=== PATIENT | female | born 1950 | race Caucasian/White ===

== ENCOUNTER → 2017-10-08 | Outpatient (CLI) | payer MEDICARE ==
[2017-10-08 15:46] LABS: CREATININE, SERUM 1.53 mg/dL (0.57-1.11)
== END ==
LOC: MRI 14:23
PROVIDERS: ATTEND Internal Medicine Gastroenterology
DX: R93.2 Abnormal findings on diagnostic imaging of liver and biliary tract (principal)
CPT/HCPCS: 36415; 74181; 82565; 84520

== ENCOUNTER → 2017-11-24 | Day surgery (SDC) | payer MEDICARE ==
[2017-11-23 09:56] LABS: BASOPHILS % 0.4 % (0.0-1.0); EOSINOPHILS # (AUTO) 0.2 (0.0-0.4); EOSINOPHILS % 1.9 % (0.0-6.0); HEMATOCRIT 37.5 % (34.2-44.1); HEMOGLOBIN 12.5 g/dL (12.0-16.0); LYMPHOCYTES # (AUTO) 1.8 (1.0-3.2); LYMPHOCYTES % 19.1 % (18.0-39.1); MEAN CORPUSCULAR HEMOGLOBIN 30.3 pg (28-32); MEAN CORPUSCULAR HGB CONC 33.3 g/dL (31-35); MEAN CORPUSCULAR VOLUME 90.8 fL (81-99); MONOCYTES # (AUTO) 0.5 (0.2-0.8); MONOCYTES % 5.8 % (4.4-11.3); NEUTROPHILS # (AUTO) 6.8 (2.1-6.9); NEUTROPHILS % 72.4 % (38.7-80.0); PLATELET COUNT 207 x10e3/uL (140-360); RED BLOOD COUNT 4.13 x10e6/uL (3.6-5.1); RED CELL DISTRIBUTION WIDTH 13.5 % (11.7-14.4)
[2017-11-23 10:13] LABS: ANION GAP 14.9 mmol/L (8-16); BLOOD UREA NITROGEN 7 mg/dL (7-26); BUN/CREATININE RATIO 9 (6-25); CARBON DIOXIDE 27 mmol/L (22-29); CHLORIDE 102 mmol/L (98-107); CREATININE, SERUM 0.77 mg/dL (0.57-1.11); EST GLOMERULAR FILTRATION RATE > 60 ML/MIN (60-); GLUCOSE 126 mg/dL (74-118); POTASSIUM 3.9 mmol/L (3.5-5.1); SODIUM 140 mmol/L (136-145)
--- NOTE | 2017-11-23 11:11 | Diagnostic Imaging Report ---
PROCEDURE: Frontal and lateral views of the chest. COMPARISON: None. INDICATIONS: PRE OPERATIVE CHEST X-RAY FOR WRIST SURGERY FINDINGS: Lines/tubes: None. Lungs: The lungs are well inflated and clear. There is no evidence of pneumonia or pulmonary edema. Pleura: There is no pleural effusion or pneumothorax. Heart and mediastinum: The heart and the mediastinum are normal. Bones: No acute bony abnormality. Degenerative changes of the thoracic spine. IMPRESSION: No acute radiographic abnormality. Dictated by: Mark Pina M.D. on 11/23/2017 at 11:10 Electronically approved by: Mark Pina M.D. on 11/23/2017 at 11:10
[~2017-11-24] MED LIST: ALBUTEROL0.63 MG/3 NEB; AMLODIPINE BESYL5 MG PO; ATORVASTATIN CA40 MG PO; BACITRACIN 50,000 UNIT VIAL ONE; BUPIVACAINE HCL 0.5% 10ML MPF VIAL INJ ONE; CEFAZOLIN SOD 2 GM/D5W 50ML 50 ML IV ONE; CLONAZEPAM1 MG PO; DEXAMETHASONE SOD PHOS INJ 4 MG/ML VIAL ONE; FENTANYL CITRATE/PF 100MCG/2 ML INJ ONE; FLUOXETINE PO; HYDROMORPHONE 1MG/1ML INJ ONE; IBUPROFEN600 MG PO; KETOROLAC TROMETHAMINE 30 MG/ML VIAL ONE; LEVOTHYROXINE88 MCG PO; LIDOCAINE HCL 2% LOCAL INJ 5 ML SDV VIAL INJ ONE; LISINOPRIL40 MG PO; METFORMIN HCL1000 MG PO; MIDAZOLAM HCL 2 MG/2 ML VIAL ONE; ONDANSETRON HCL INJ 2 MG/ML VIAL ONE; PANTOPRAZOLE SO40 MG PO; PROAIR HFA INH8.5 GM INH; PROPOFOL IV EMULSION 10 MG/ML 20 ML VIAL ONE; SEVOFLURANE INHAL SOLN 250 ML PEN BTL ONE; SYMBICORT 16010.2 GM INH; TYLENOL WITH C1 EACH PO
--- OUTSIDE RECORDS SUMMARY | 2017-11-24 05:33 | XMS REPORT ---
Author Author Admin, [facility] [place] [address] [place] [address] Phone Allergies, Adverse Reactions, Alerts Allergy Name Reaction Description Start Date Severity Status Provider CODEINE Itchiness Moderate Active Blade Lorenz MD Conditions or Problems Problem Name Problem Code Onset Date Status Entry Date Provider Comment Standard Description Annotate Flu vaccine V04.81 Active Meghan Menezes MD Need for prophylactic vaccination and inoculation against influenza Bereavement due to life event V62.82 Active Meghan Menezes MD Bereavement, uncomplicated Diabetes mellitus, type II 250.00 Active Meghan Menezes MD Diabetes mellitus without mention of complication, type II or unspecified type, not stated as uncontrolled Hip joint pain, left 719.45 Active Meghan Menezes MD Pain in joint involving pelvic region and thigh Knee pain, bilateral 719.46 Active Meghan Menezes MD Pain in joint involving lower leg Chronic viral hepatitis C 070.54 Active Daren Antonio MD (res) Chronic hepatitis C without mention of hepatic coma Shoulder joint pain, right 719.41 Active Daren Antonio MD (res) Pain in joint involving shoulder region COPD, acute exacerbation 491.21 Active Kavon Haney MD Obstructive chronic bronchitis with (acute) exacerbation Alcohol Abuse 305.00 Active Faustino Westbrook MD Alcohol abuse, unspecified drinking behavior Anxiety state, unspecified 300.00 Active Faustino Westbrook MD Anxiety state, unspecified Major depressive disorder, recurrent episode, moderate degree 296.32 Active Faustino Westbrook MD Major depressive disorder, recurrent episode, moderate degree Back pain, lumbar 724.2 Active Blade Lorenz MD Lumbago BMI 23.0-23.9 Active Blade Lorenz MD Body Mass Index between 19-24, adult Chronic cough 786.2 Active Blade Lorenz MD Cough COPD 496 Active Blade Lorenz MD Chronic airway obstruction, not elsewhere classified Hx of COPD 496 Active Blade Lorenz MD Chronic airway obstruction, not elsewhere classified Hx of hypercholesterolemia 272.0 Active Blade Lorenz MD Pure hypercholesterolemia Hypertension benign essential 401.1 Active Blade Lorenz MD Benign essential hypertension Hypothyroidism 244.9 Active Blade Lorenz MD Unspecified hypothyroidism Tobacco Use 305.1 Active Blade Lorenz MD Tobacco use disorder Well women exam V72.3 Active Blade Lorenz MD Special investigations and examinations - Gynecological examination Depression, major ICD-296.20 Inactive Faustino Westbrook MD Hx of alcohol abuse ICD-V11.3 Inactive Faustino Westbrook MD Hx of anxiety depression ICD-V11.8 Inactive Faustino Westbrook MD Screening for diabetes mellitus ICD-V77.1 Inactive Meghan Menezes MD Screening for lipid disorder ICD-V77.91 Inactive Meghan Menezes MD Depression, major 296.20 Resolved Faustino Westbrook MD Major depressive disorder, single episode, unspecified degree Hx of alcohol abuse V11.3 Resolved Faustino Westbrook MD Personal history of alcoholism Hx of anxiety depression V11.8 Resolved Faustino Westbrook MD Personal history of other mental disorders Screening for diabetes mellitus V77.1 Resolved Meghan Menezes MD Screening for diabetes mellitus Screening for lipid disorder V77.91 Resolved Meghan Menezes MD Screening for lipoid disorders Medication List Medication Instructions Start Date Stop Date Generic Name NDC Status Provider Patient Instruction LEVOTHYROXINE SODIUM 88 MCG ORAL TABLET One tab by mouth daily LEVOTHYROXINE SODIUM 31441599607 Active Meghan Menezes MD Active CLONAZEPAM 0.5 MG ORAL TABLET 1 By Mouth Twice a Day As Needed anxiety 05/26 CLONAZEPAM 74422929746 Active Meghan Menezes MD Active METFORMIN HCL 1000 MG ORAL TABLET 1 by mouth twice a day METFORMIN HCL 61875976266 Active Meghan Menezes MD Active CYCLOBENZAPRINE HCL 10 MG ORAL TABLET 1 By Mouth three times a day as needed for muscle spasm CYCLOBENZAPRINE HCL 85226385296 Active Soni Bocanegra KNITTING INSPECTOR Active NORVASC 5 MG ORAL TABLET 1 by mouth every day AMLODIPINE BESYLATE 42123844737 Active Meghan Menezes MD Active NASONEB NEBULIZER STARTER NASAL NEBULIZERS 72528888276 Active Daren Antonio MD (res) Active TESSALON PERLES 100 MG ORAL CAPSULE 1 by mouth 3 times a day as needed for cough BENZONATATE 73106361810 Active Daren Antonio MD (res) Active ALBUTEROL SULFATE (2.5 MG/3ML) 0.083% INHALATION NEBULIZATION SOLUTION 1 via Hand held neb every 4 - 6 hours as needed ALBUTEROL SULFATE 04194115597 Active Daren Antonio MD (res) Active ATORVASTATIN CALCIUM 20 MG ORAL TABLET Take one tab take at bedtime ATORVASTATIN CALCIUM 24380412946 Active Meghan Menezes MD Active FLUOXETINE HCL 40 MG ORAL CAPSULE 1 by mouth daily FLUOXETINE HCL 05422708052 Active Meghan Menezes MD Active LEVOTHYROXINE SODIUM 100 MCG ORAL TABLET 1 by mouth daily LEVOTHYROXINE SODIUM 19429966937 Active Meghan Menezes MD Active LISINOPRIL 40 MG ORAL TABLET 1 by mouth every day LISINOPRIL 17733174499 Active Meghan Menezes MD Active PROAIR HFA 108 (90 Base) MCG/ACT INHALATION AEROSOL SOLUTION 2 puffs every 4 - 6 hours as needed ALBUTEROL SULFATE 62819023661 Active Birgit Ward MD Active SYMBICORT 160-4.5 MCG/ACT INHALATION AEROSOL 1 inhalation bid BUDESONIDE-FORMOTEROL FUMARATE 10013692854 Active Daren Antonio MD (res) Active METFORMIN HCL 500 MG ORAL TABLET 1 by mouth twice a day METFORMIN HCL 500 MG ORAL TABLET 839575 METFORMIN HCL Inactive AZITHROMYCIN 250 MG ORAL TABLET 2 tablets by mouth on day one then one tablet by mouth each day for a total of 5 days AZITHROMYCIN 250 MG ORAL TABLET 710125 AZITHROMYCIN Inactive HYDROXYZINE HCL 25 MG ORAL TABLET 1 tab By Mouth Three Times a Day as needed for anxiety HYDROXYZINE HCL 25 MG ORAL TABLET 825638 HYDROXYZINE HCL Inactive AMLODIPINE BESYLATE 10 MG ORAL TABLET 1 tab by mouth daily 12/08 AMLODIPINE BESYLATE 10 MG ORAL TABLET 094864 AMLODIPINE BESYLATE Inactive METFORMIN HCL 500 MG ORAL TABLET 1 by mouth twice a day METFORMIN HCL 20087695617 No Longer Active Soni Bocanegra KNITTING INSPECTOR Active AZITHROMYCIN 250 MG ORAL TABLET 2 tablets by mouth on day one then one tablet by mouth each day for a total of 5 days AZITHROMYCIN 81652662036 No Longer Active Blade Lorenz MD Active HYDROXYZINE HCL 25 MG ORAL TABLET 1 tab By Mouth Three Times a Day as needed for anxiety HYDROXYZINE HCL 64176552673 No Longer Active Meghan Menezes MD Active AMLODIPINE BESYLATE 10 MG ORAL TABLET 1 tab by mouth daily 12/08 AMLODIPINE BESYLATE 92666513259 No Longer Active Blade Lorenz MD Active Immunizations Vaccine Administration Date Value Standard Description influenza immunization (Flu Vax) has been administered given influenza virus vaccine, unspecified formulation Vital Signs Date Name Value Unit Range Description blood pressure, diastolic 65 mm[Hg] BP hebert blood pressure, systolic 98 mm[Hg] BP sys height E&M 64 [in_us] Bdy height pulse rate E&M 70 /min Heart rate respiratory rate E&M 17 /min Resp rate temperature E&M 98.2 [degF] Body temperature weight E&M 132 [lb_av] Weight Measured blood pressure, diastolic 75 mm[Hg] BP hebert blood pressure, systolic 132 mm[Hg] BP sys height E&M 64 [in_us] Bdy height pulse rate E&M 82 /min Heart rate respiratory rate E&M 17 /min Resp rate temperature E&M 98.0 [degF] Body temperature weight E&M 127 [lb_av] Weight Measured blood pressure, diastolic 88 mm[Hg] BP hebert blood pressure, systolic 137 mm[Hg] BP sys height E&M 64 [in_us] Bdy height pulse rate E&M 80 /min Heart rate respiratory rate E&M 16 /min Resp rate temperature E&M 97.2 [degF] Body temperature weight E&M 127 [lb_av] Weight Measured blood pressure, diastolic 83 mm[Hg] BP hebert blood pressure, systolic 123 mm[Hg] BP sys height E&M 64 [in_us] Bdy height pulse rate E&M 63 /min Heart rate respiratory rate E&M 17 /min Resp rate temperature E&M 98.0 [degF] Body temperature weight E&M 137 [lb_av] Weight Measured blood pressure, diastolic 92 mm[Hg] BP hebert blood pressure, systolic 163 mm[Hg] BP sys height E&M 64 [in_us] Bdy height pulse rate E&M 73 /min Heart rate respiratory rate E&M 18 /min Resp rate temperature E&M 98.1 [degF] Body temperature weight E&M 137 [lb_av] Weight Measured blood pressure, diastolic 90 mm[Hg] BP hebert blood pressure, systolic 145 mm[Hg] BP sys height E&M 64 [in_us] Bdy height pulse rate E&M 76 /min Heart rate respiratory rate E&M 18 /min Resp rate temperature E&M 98.3 [degF] Body temperature weight E&M 135.50 [lb_av] Weight Measured Diagnostic Results Date Name Value Unit Range Description Lab Report: Comp. Metabolic Panel (14), Hemoglobin A1c, HCV Antibody - Serology hepatitis C antibody, serum >11.0 0.0-0.9 Lab Report: TSH+Free T4, CBC With Differential/Platelet, Comp. Metabolic ... - Hematology lymphocyte count, blood, automated 1.2 X10E3/UL 10*3/mm3 0.7- 3.1 Lab Report: TSH+Free T4, CBC With Differential/Platelet, Comp. Metabolic ... - Chemistry urea nitrogen, blood 10 mg/dL 8-27 creatinine, serum 0.79 mg/dL 0.57-1.00 chloride, serum 95 mmol/L 96-106 Lab Report: TSH+Free T4, CBC With Differential/Platelet, Comp. Metabolic ... - Hematology mean corpuscular volume, RBC 91 fL 79-97 Lab Report: Basic Metabolic Panel (8), Lipid Panel, Microalb/Creat Ratio ... - Chemistry triglyceride, serum, fasting 133 mg/dL 0-149 Lab Report: TSH+Free T4, CBC With Differential/Platelet, Comp. Metabolic ... - Hematology erythrocyte (RBC) count 4.00 X10E6/UL 10*6/mm3 3.77-5.28 Lab Report: TSH+Free T4, CBC With Differential/Platelet, Comp. Metabolic ... - Chemistry Estimated Glomerular Filtration Rate (calc) 79 mL/min/1.73m2 > 59 Lab Report: TSH+Free T4, CBC With Differential/Platelet, Comp. Metabolic ... - Hematology platelet count 251 X10E3/UL 10*3/mm3 675-630 1835/12/26 red blood cell distribution width 13.5 % 12.3-15.4 Lab Report: TSH+Free T4, CBC With Differential/Platelet, Comp. Metabolic ... - Chemistry protein, total, serum 6.6 g/dL 6.0-8.5 Lab Report: Basic Metabolic Panel (8), Lipid Panel, Microalb/Creat Ratio ... - Chemistry HDL cholesterol, serum 59 mg/dL >39 Lab Report: TSH+Free T4, CBC With Differential/Platelet, Comp. Metabolic ... - Chemistry albumin/globulin ratio, serum 2.1 1.2-2.2 Lab Report: TSH+Free T4, CBC With Differential/Platelet, Comp. Metabolic ... - Hematology eosinophils as percent of blood leukocytes 1 % Not Estab. Lab Report: TSH+Free T4, CBC With Differential/Platelet, Comp. Metabolic ... - Chemistry Absolute Neutrophils 8.3 X10E3/UL 10*3/uL 1.4-7.0 Lab Report: Basic Metabolic Panel (8), Lipid Panel, Microalb/Creat Ratio ... - Chemistry microalbumin/creatinine ratio, urine 7.6 MG/G CREAT ug/mg 0.0- 30.0 Lab Report: TSH+Free T4, CBC With Differential/Platelet, Comp. Metabolic ... - Hematology basophil count, absolute 0.0 x10E3/uL 0.0-0.2 Lab Report: TSH+Free T4, CBC With Differential/Platelet, Comp. Metabolic ... - Chemistry alanine aminotransferase (SGPT), serum 14 U/L 0-32 Lab Report: Basic Metabolic Panel (8), Lipid Panel, Microalb/Creat Ratio ... - Chemistry LDL cholesterol, serum 68 mg/dL 0-99 Lab Report: TSH+Free T4, CBC With Differential/Platelet, Comp. Metabolic ... - Hematology monocytes as percent of blood leukocytes 6 % Not Estab. Lab Report: Basic Metabolic Panel (8), Lipid Panel, Microalb/Creat Ratio ... - Chemistry cholesterol, serum 154 mg/dL 100-199 Lab Report: TSH+Free T4, CBC With Differential/Platelet, Comp. Metabolic ... - Hematology mean corpuscular hemoglobin concentration, RBC 33.8 G/DL % 31.5- 35.7 hemoglobin, blood 12.3 g/dL 11.1-15.9 leukocyte count, blood 10.3 X10E3/UL 10*3/mm3 3.4-10.8 hematocrit, blood 36.4 % 34.0-46.6 Lab Report: TSH+Free T4, CBC With Differential/Platelet, Comp. Metabolic ... - Chemistry globulin, serum 2.1 1.5-4.5 thyroid stimulating hormone, serum 0.276 u[iU]/mL 0.450-4.500 albumin, serum 4.5 g/dL 3.6-4.8 Lab Report: Basic Metabolic Panel (8), Lipid Panel, Microalb/Creat Ratio ... - Chemistry very low density lipoproteins 27 mg/dL 5-40 Lab Report: TSH+Free T4, CBC With Differential/Platelet, Comp. Metabolic ... - Chemistry calcium, serum 9.3 mg/dL 8.7-10.3 Lab Report: TSH+Free T4, CBC With Differential/Platelet, Comp. Metabolic ... - Hematology basophils as percent of blood leukocytes 0 % Not Estab. Lab Report: TSH+Free T4, CBC With Differential/Platelet, Comp. Metabolic ... - Chemistry thyroxine, serum, free 1.65 ng/dL 0.82-1.77 Lab Report: Basic Metabolic Panel (8), Lipid Panel, Microalb/Creat Ratio ... - Urinalysis microalbumin/total urine volume 14.4 mg/L Not Estab. Lab Report: TSH+Free T4, CBC With Differential/Platelet, Comp. Metabolic ... - Hematology monocyte count, blood, automated 0.7 X10E3/UL 10*3/uL 0.1-0.9 Lab Report: TSH+Free T4, CBC With Differential/Platelet, Comp. Metabolic ... - Chemistry immature granulocytes, percentage of total cells, blood 0 % Not Estab. urea nitrogen/creatinine ratio, serum 13 - Lab Report: TSH+Free T4, CBC With Differential/Platelet, Comp. Metabolic ... - Genetics/fertility eGFR if 91 mL/min/1.73m2 >59 Lab Report: TSH+Free T4, CBC With Differential/Platelet, Comp. Metabolic ... - Hematology lymphocytes as percent of blood leukocytes 12 % Not Estab. Lab Report: TSH+Free T4, CBC With Differential/Platelet, Comp. Metabolic ... - Chemistry carbon dioxide, venous blood 23 mmol/L 18-29 sodium, serum 136 mmol/L 095-583 8024/12/26 hemoglobin A1C, blood, as % of total hemoglobin 6.1 % 4.8-5.6 alkaline phosphatase, serum 71 U/L 39-117 Lab Report: TSH+Free T4, CBC With Differential/Platelet, Comp. Metabolic ... - Hematology Eosinophil Absolute Count 0.1 X10E3/UL 10*3/uL 0.0-0.4 mean corpuscular hemoglobin, RBC 30.8 pg 26.6-33.0 Lab Report: TSH+Free T4, CBC With Differential/Platelet, Comp. Metabolic ... - Chemistry bilirubin, serum, total 0.4 mg/dL 0.0-1.2 Lab Report: Basic Metabolic Panel (8), Lipid Panel, Microalb/Creat Ratio ... - Chemistry creatinine, random, urine 188.3 mg/dL Not Estab. Lab Report: TSH+Free T4, CBC With Differential/Platelet, Comp. Metabolic ... - Hematology neutrophils as percent of blood leukocytes 81 % Not Estab. Lab Report: TSH+Free T4, CBC With Differential/Platelet, Comp. Metabolic ... - Chemistry blood glucose, random 167 mg/dL 65-99 potassium, serum 4.3 mmol/L 3.5-5.2 aspartate aminotransferase (SGOT), serum 15 U/L 0-40 Encounters Date Encounter Provider Code Facility 13:27:53 HIDE TANNER Est Patient Detailed - 72418 Meghan Menezes MD CPT- 61011 [facility] 21:34:47 CDT Est Patient Exp Problem - 36346 Meghan Menezes MD CPT- 66230 [facility] 08:45:03 CDT Est Patient Detailed - 53552 Meghan Menezes MD CPT- 91742 [facility] 15:26:28 CDT Est Patient Detailed - 21046 Daren Antonio MD (res) CPT-16774 [facility] 11:18:46 HIDE TANNER Est Patient Exp Problem - 65762 Blade Lorenz MD CPT-17068 [facility] 16:03:38 HIDE TANNER Est Patient Exp Problem - 23695 Blade Lorenz MD CPT-37831 [facility] 11:41:53 HIDE TANNER Est Patient Exp Problem - 10843 Kavon Haney MD CPT-20230 [facility] 16:35:56 HIDE TANNER Est Patient Exp Problem - 30525 Faustino Westbrook MD CPT -03008 [facility] 11:17:24 HIDE TANNER New Patient Detailed - 22610 Birgit Ward MD CPT-08481 [facility] Procedures Code Procedure Name Date Entry Date Standard Description CPT-61998 INFLUENZA VACCINE QUADRIVALENT 3 YRS PLUS IM 21:34:52 CDT CPT-46536 Diagnostic evaluation (no medical) - 93343 15:43:40 HIDE TANNER
--- OUTSIDE RECORDS SUMMARY | 2017-11-24 05:33 | XMS REPORT ---
Author Author [facility] Address Unknown Phone Unavailable Care Team Providers Care Assistant Golf Coach Name Role Phone NAT HICKS Unavailable Unavailable JAMEEL FERRO Unavailable Unavailable Problems This patient has no known problems. Allergies, Adverse Reactions, Alerts This patient has no known allergies or adverse reactions. Medications This patient has no known medications. Results Test Description Test Time Test Comments Text Results Atomic Results Result Comments CHEST 2 VIEWS [place] [address] Patient Name: FARIBA ASHER MR #: [id number] : 1950 Age/Sex: 67/F Req #: [id number] [facility] Physician: Ordered by: NAT HICKS MD Report #: [id number] Location: OR Room/Bed: Procedure: [id number] DX/CHEST 2 VIEWS Exam Date: 11/23/17 Exam Time: 1010 REPORT STATUS: Signed PROCEDURE: Frontal and lateral views of the chest. COMPARISON: None. INDICATIONS: PRE OPERATIVE CHEST X- RAY FOR WRIST SURGERY FINDINGS: Lines/tubes: None. Lungs: The lungs are well inflated and clear. There is no evidence of pneumonia or pulmonary edema. Pleura: There is no pleural effusion or pneumothorax. Heart and mediastinum: The heart and the mediastinum are normal. Bones: No acute bony abnormality. Degenerative changes of the thoracic spine. IMPRESSION: No acute radiographic abnormality. Dictated by: Yakov Matt M.D. on 11/23/2017 at 11:10 Electronically approved by: Yakov Matt M.D. on 11/23/2017 at 11:10 Dictated By : YAKOV MATT MD 09 Transcribed By: FEDERICO on 11/23/17 111 COPY TO: NAT HICKS MD LIVER [place] [address] Patient Name: FARIBA ASHER MR #: [id number] : 1950 Age/Sex: 67/F Req #: [id number] Adm Physician: Ordered by: JAMEEL FERRO MD Report #: [id number] Location: Room/Bed: Procedure: [id number] US/US LIVER Exam Date: Exam Time: REPORT STATUS: Signed PROCEDURE: US LIVER COMPARISON: None. INDICATIONS: Chronic Hepatitis C TECHNIQUE: Aviles scale and color Doppler ultrasound liver FINDINGS: Normal caliber abdominal aorta with atherosclerosis. Normal pancreatic head and proximal body. The tail is obscured by bowel gas. Right liver span 13 cm. Normal underlying parenchymal echogenicity with mild edge nodularity. 0.5 x 0.4 x 0.5 cm hyperechoic nodule in the peripheral left lobe. Portal vein diameter 1.3 cm; normal flow direction. Large gallstones. Wall thickness 4 mm. Common bile duct diameter 3 mm. Right kidney span 10 cm. Normal kidney. CONCLUSION: 1. 5 mm indeterminate nodule within the left lobe of the liver. MRI is recommended for characterization. 2. Findings consistent with cirrhosis. Dictated by: Desiree Lo M.D. on 08/24/2017 at 9:55 Electronically approved by: Desiree Lo M.D. on 08/24/2017 at 9:55 Dictated By: DESIREE LO MD 4 Transcribed By: FEDERICO on 08/24/17954 COPY TO: JAMEEL FERRO MD
--- OUTSIDE RECORDS SUMMARY | 2017-11-24 05:33 | XMS REPORT | Clinical Summary ---
Author Author [facility] Organization [facility] Address Unknown Phone Unavailable Care Team Providers Care Glass Breaker Name Role Phone Sergey Rosario MD PCP Allergies Active Allergy Reactions Severity Noted Date Comments Codeine Itching 08/03/2016 Current Medications Prescription Sig. Disp. Refills Start End Date Status Date lisinopril Take 1 tablet (40 mg 30 tablet 1 08/03/20 Active (PRINIVIL,ZESTRIL) 40 MG total) by mouth daily. 16 tablet FLUoxetine (PROzac) 40 MG Take 1 capsule (40 mg 30 capsule 1 08/03/20 Active capsule total) by mouth daily. 16 atorvastatin (LIPITOR) 20 Take 1 tablet (20 mg 30 tablet 1 08/03/20 Active MG tablet total) by mouth daily. 16 amLODIPine (NORVASC) 5 mg TAKE ONE TABLET BY MOUTH 30 tablet 0 Active tablet ONCE DAILY 17 levothyroxine (SYNTHROID, Take 1 tablet (100 mcg 30 tablet 1 01/27/20 Active LEVOXYL) 100 mcg tablet total) by mouth every 17 morning. metFORMIN (GLUCOPHAGE) TAKE ONE TABLET BY MOUTH 60 tablet 0 02/02/20 Active 500 mg tablet TWICE DAILY WITH MEALS 17 ibuprofen (ADVIL,MOTRIN) Take 1 tablet (600 mg 30 tablet 0 11/12/19 12/13/19 Active 600 MG tablet total) by mouth every 6 18 18 (six) hours as needed for mild pain for up to 30 days. metFORMIN (GLUCOPHAGE) Take 1 tablet (500 mg 60 tablet 1 08/03/20 Discontin 500 MG tablet total) by mouth 2 (two) 16 17 ued times a day with meals. levothyroxine (SYNTHROID, Take 1 tablet (100 mcg 30 tablet 1 08/03/20 01/27/20 Discontin LEVOTHROID) 100 MCG total) by mouth every 16 17 ued tablet morning. acetaminophen-codeine Take 1-2 tablets by mouth 15 tablet 0 11/12/19 11/17/19 (TYLENOL WITH CODEINE #3) every 6 (six) hours as 18 18 300-30 mg per tablet needed for moderate pain for up to 5 days. Active Problems Not on file Encounters Date Type Specialty Care Team Description 11/12/2017 Emergency Emergency Medicine Chhaya Terry, Left wrist fracture, closed, initial encounter (Primary Dx); Fall, initial encounter 04/02/2017 Refill Family Medicine Sergey Rosario MD 03/03/2017 Refill Family Medicine Sergey Rosario MD 02/01/2017 Refill Family Medicine Sergey Rosario MD 01/24/2017 Refill Family Sergey Cerna MD 01/21/2017 Refill Family Medicine Sergey Rosario MD 01/16/2017 Refill Family Medicine Sergey Rosario MD 12/12/2016 [facility] Emergency Medicine Physician, Samreen, Encounter Inocente Bynum MD 12/12/2016 Orders Only Emergency Medicine Provider, MD Rizw[place] after 11/23/2016 Family History Medical History Relation Name Comments Diabetes Father Heart disease Father Hepatitis Father Asthma Mother Heart disease Mother Relation Name Status Comments Father Mother Alive Social History Tobacco Use Types Packs/Day Years Used Date Current Every Day Smoker 0.25 Smokeless Tobacco: Current User Alcohol Use Drinks/Week oz/Week Comments No Sex Assigned at Date Recorded Not on file Last Filed Vital Signs Vital Sign Reading Time Taken Blood Pressure 130/85 11/12/2017 7:36 PM AWS ARCHITECT Pulse 98 11/12/2017 7:36 PM AWS ARCHITECT Temperature 36.9 C (98.4 F) 11/12/2017 4:46 PM AWS ARCHITECT Respiratory Rate 20 11/12/2017 7:36 PM AWS ARCHITECT Oxygen Saturation 98% 11/12/2017 7:36 PM AWS ARCHITECT Inhaled Oxygen - - Concentration Weight - - Height - - Body Mass Index - - Plan of Treatment Health Maintenance Due Date Last Done Comments PAP SMEAR 1973 COLONOSCOPY 2002 ZOSTER VACCINE 2012 MAMMOGRAM 04/13/2013 04/13/2011 INFLUENZA VACCINE 05/04/2017 PNEUMOCOCCAL 2017 POLYSACCHARIDE VACCINE AGE 65 AND OVER PNEUMOCOCCAL-13 2017 Procedures Procedure Name Priority Date/Time Associated Diagnosis Comments WA CLOSED RX DIST Routine 11/12/2017 Results for this RAD/ULNA FX,MANIPUL 10:05 PM AWS ARCHITECT procedure are in the results section. WA APPLY LONG ARM SPLINT Routine 11/12/2017 Results for this 10:05 PM AWS ARCHITECT procedure are in the results section. after 11/23/2016 Results * ORTHOPEDIC INJURY TREATMENT (11/12/2017 10:05 PM) Narrative Chhaya Terry MD 11/12/2017 10:05 PM Orthopedic Injury Treatment Performed by: AMANDA FABIAN III Authorized by: CHHAYA TERRY Consent: Consent obtained:Verbal Consent given by:Patient Risks discussed:Nerve damage, pain and vascular damage Alternatives discussed:Alternative treatment Injury: Injury location:Forearm Forearm injury location:L forearm Forearm fracture type: distal radial Pre-procedure assessment: Neurological function: normal Distal perfusion: normal Range of motion: reduced Sedation: Sedation type:Anxiolysis Anesthesia (see MAR for exact dosages): Anesthesia method:Local infiltration Local anesthetic:Lidocaine 1% w/o epi Procedure details: Manipulation performed: yes Skin traction used: yes Skeletal traction used: yes Reduction successful: yes X-ray confirmed reduction: yes Immobilization:Splint Splint type:Sugar tong Supplies used:Elastic bandage, Ortho-Glass and cotton padding Post-procedure assessment: Neurological function: normal Distal perfusion: normal Range of motion: improved Patient tolerance of procedure:Tolerated well, no immediate complications * XR Wrist 3+ Vw Left (11/12/2017 6:51 PM) Only the most recent of 2 results within the time period is included. Specimen Performing Laboratory [facility] [address] [place] [address] Narrative Procedure:XR WRIST 3VW LEFT REFERRING PHYSICIAN: CHHAYA TERRY HISTORY:DISLOCATIONWRIST, post reduction of wrist IMPRESSION: Since the study earlier on the same day, there has been placement of an overlying cast causing obscuration of the underlying osseous details. Mild to moderate reduction of the Colles' fractures is seen. [facility]-[id number] Procedure Note Interface, Radiology Results Incoming - 11/12/2017 6:57 PM AWS ARCHITECT Procedure:XR WRIST 3 VW LEFT REFERRING PHYSICIAN: CHHAYA TERRY HISTORY: DISLOCATION WRIST, post reduction of wrist IMPRESSION: Since the study earlier on the same day, there has been placement of an overlying cast causing obscuration of the underlying osseous details. Mild to moderate reduction of the Colles' fractures is seen. [facility]-[id number] * XR Forearm 2 Vw Left (11/12/2017 5:39 PM) Specimen Performing Laboratory [facility] [address] [place] [address] Narrative XR FOREARM 2 VW LEFT CLINICAL INDICATION:BONE PAINFOREARM COMPARISON:Wrist exam same day IMPRESSION: An acute comminuted transverse fracture involves the distal radius with moderate apex palmar angulation and impaction. There is widening of the distal radioulnar articulation with an ulnar styloid fracture. No definite intra- articular offset is visualized. Prominent soft tissue swelling is noted. A radial prosthesis is noted but proximal radius and ulna are otherwise unremarkable. Thank you for allowing us to participate in the care of your patient. [facility]-[id number] Procedure Note Interface, Radiology Results Incoming - 11/12/2017 5:47 PM AWS ARCHITECT XR FOREARM 2 VW LEFT CLINICAL INDICATION: BONE PAIN FOREARM COMPARISON: Wrist exam same day IMPRESSION: An acute comminuted transverse fracture involves the distal radius with moderate apex palmar angulation and impaction. There is widening of the distal radioulnar articulation with an ulnar styloid fracture. No definite intra- articular offset is visualized. Prominent soft tissue swelling is noted. A radial prosthesis is noted but proximal radius and ulna are otherwise unremarkable. Thank you for allowing us to participate in the care of your patient. [facility]-[id number] * XR Chest 2 Vw (12/12/2016 4:13 PM) Specimen Performing Laboratory [facility] [address] [place] [address] Narrative EXAMINATION:CHEST 2 VIEW PA AP LATERAL CLINICAL HISTORY:1. Chest Pain COMPARISON:10/30/2016 IMPRESSION: The lungs are clear. The cardiomediastinal silhouette is within normal limits. The bones are age-appropriate. Normal chest. [id number] Procedure Note Interface, Radiology Conversion - 12/12/2016 4:20 PM AWS ARCHITECT EXAMINATION: CHEST 2 VIEW PA AP LATERAL CLINICAL HISTORY: 1. Chest Pain COMPARISON: 10/30/2016 IMPRESSION: The lungs are clear. The cardiomediastinal silhouette is within normal limits. The bones are age-appropriate. Normal chest. [id number] * ECG 12 lead (12/12/2016 3:27 PM) Component Value Ref Range Ventricular rate 68 Atrial rate 68 WA interval 116 QRSD interval 84 QT interval 396 QTC interval 421 P axis 1 -26 QRS axis 1 53 T wave axis 66 EKG impression Normal sinus rhythm-Normal ECG-In automated comparison with ECG of 30-OCT-2016 19:44,-No significant change was found- Specimen Performing Laboratory [facility] [address] [place] [address] * Estimated GFR (12/12/2016 3:26 PM) Component Value Ref Range GFR Non Af Amer 56 (A) mL/min/1.73 m2 GFR Af Amer 68 mL/min/1.73 m2 Comment: Chronic kidney disease: <60 mL/min/1.73m2 Kidney failure: <15 mL/min/1.73m2 The estimated GFR is calculated from the IDMS-traceable Modification of Diet in Renal Disease Equation. The accuracy of the calculation is poor when the creatinine is normal. Calculated values >90 mL/min/1.73m2 are not reported. This equation has not been validated in children (<18 years), women, the elderly (>70 years), or ethnic groups other than Caucasians and Americans. Specimen Performing Laboratory [facility] DEPARTMENT OF PATHOLOGY AND GENOMIC MEDICINE [address] [place] [address] * Troponin (12/12/2016 3:26 PM) Component Value Ref Range Troponin <0.01 0.00 - 0.60 ng/mL Comment: 0.11 - 1.49 ng/ml May indicate increased risk of acute coronary syndrome. >=1.5 ng/ml Consistent with acute myocardial infarction. The diagnostic value of a single normal or non-diagnostic result is questionable. Serial samples at 2-6 hour intervals are required to rule out acute myocardial injury. Specimen Performing Laboratory [facility] DEPARTMENT OF PATHOLOGY AND GENOMIC MEDICINE [address] [place] [address] * CBC with platelet and differential (12/12/2016 3:26 PM) Component Value Ref Range WBC 10.0 4.2 - 11.0 k/uL RBC 4.71 4.04 - 5.86 m/uL HGB 14.2 11.5 - 15.3 g/dL HCT 42.3 34.0 - 45.0 % MCV 89.8 80.0 - 98.0 fL MCH 30.1 27.0 - 34.0 pg MCHC 33.6 31.5 - 36.5 g/dL RDW - SD 42.3 37.0 - 51.0 fL MPV 10.8 (H) 7.4 - 10.4 fL Platelet count 237 150 - 400 k/uL Nucleated RBC 0.00 /100 WBC Neutrophils 71.1 (H) 36.0 - 66.0 % Lymphocytes 19.4 (L) 24.0 - 44.0 % Monocytes 7.1 (H) 0.0 - 6.0 % Eosinophils 1.5 0.0 - 6.0 % Basophils 0.6 0.0 - 1.2 % Immature granulocytes 0.3 0.0 - 1.0 % Specimen Performing Laboratory [facility] DEPARTMENT OF PATHOLOGY AND GENOMIC MEDICINE [facility] [place] [address] * B natriuretic peptide (12/12/2016 3:26 PM) Component Value Ref Range BNP 34 0 - 100 pg/mL Specimen Performing Laboratory [facility] DEPARTMENT OF PATHOLOGY AND GENOMIC MEDICINE [facility] [place] [address] * Hepatic function panel (12/12/2016 3:26 PM) Component Value Ref Range Albumin 4.3 3.2 - 5.0 g/dL Total bilirubin 0.9 0.2 - 1.2 mg/dL Bilirubin direct 0.2 0.0 - 0.4 mg/dL Alkaline phosphatase 96 30 - 120 U/L Protein 7.7 6.3 - 8.2 g/dL ALT 21 (L) 30 - 65 U/L AST 11 (L) 15 - 37 U/L Specimen Performing Laboratory [facility] DEPARTMENT OF PATHOLOGY AND GENOMIC MEDICINE [facility] [place] [address] * Basic metabolic panel (12/12/2016 3:26 PM) Component Value Ref Range Sodium 137 135 - 150 mEq/L Potassium 3.9 3.5 - 5.0 mEq/L Chloride 101 100 - 109 mEq/L CO2 26 24 - 32 mmol/L Anion gap 10 7 - 15 mEq/L Comment: Starting from January , anion gap calculation no longer incorporates potassium. Please note the change. BUN 12 7 - 18 mg/dL Creatinine 1.0 0.8 - 1.5 mg/dL Glucose 131 (H) 65 - 100 mg/dL Calcium 9.2 8.6 - 10.7 mg/dL Specimen Performing Laboratory [facility] DEPARTMENT OF PATHOLOGY AND GENOMIC MEDICINE [address] [place] [address] * POC glucose (12/12/2016 3:17 PM) Component Value Ref Range POC glucose 149 (H) 65 - 100 mg/dL Comment: Meter ID: [id number] Weld Engineer: Martita George Specimen Performing Laboratory [facility] DEPARTMENT OF PATHOLOGY AND GENOMIC MEDICINE [address] [place] [address] after 11/23/2016 Insurance Payer Benefit Subscriber ID Type Phone Address Plan / Group AETNA MEDICARE AETNA xxxxxxxx HMO MEDICARE HMO/PPO [facility] Home:
--- NOTE | 2017-11-24 20:38 | Operative Report ---
DATE OF PROCEDURE: November 24, 2017 PREOPERATIVE DIAGNOSIS: Displaced left distal radius fracture. POSTOPERATIVE DIAGNOSIS: Displaced left distal radius fracture. OPERATIONS/PROCEDURES PERFORMED: Patient underwent 1. An attempted closed reduction of the left distal radius fracture followed by an open reduction and percutaneous. 2. Pinning of the left distal radius fracture. 3. Allograft bone grafting of the left distal radius fracture. LOOP CUTTER: Candice Rowland ANESTHESIA: General intubation anesthesia. IV FLUIDS: Per the anesthesia record. BRIEF DESCRIPTION OF PROCEDURE: Ms. Tobar was taken to the operating room, placed in the supine position on operating table. Following induction of general anesthesia, as well as endotracheal intubation, the patient's left upper extremity was examined under anesthesia. She was found to have a moderate deformity at the level of the joint. There was bruising and ecchymosis involving the wrist area. Fluoroscopic evaluation of the wrist joint demonstrated a dorsally malaligned and displaced distal radius fracture. The patient's upper extremity was prepped and draped in standard surgical fashion. The case was begun by attempting a closed reduction of the distal radius. Gentle distraction and volarly directed force was placed across the patient's wrist and fluoroscopic evaluation demonstrated improvement in the alignment and unsuccessful complete reduction of the patient's distal radius fracture. An incision was then created overlying the fracture site in the center point of the distal forearm and wrist. This incision was carried through skin only. Blunt dissection was used to deepen the incision to the level of the 4th dorsal extensor compartment. This compartment was opened and the common extensor tendons were retracted in an ulnar direction. The fracture site was easily identified and a [place] was placed within the fracture site. The fracture was then levered into a reduced position and two 0.062 K-wires were used to transfix the fracture site in its reduced position. This was achieved by the surgeon initiating pin fixation by starting the pins and the distal aspect the radius and the nurse first assist to advancing the pins across the patient's fracture site with the fracture held in its reduced position. Once this was achieved, the fracture was visualized in both AP and lateral planes and found to have marked improvement in its alignment. The wound was copiously irrigated. Allograft bone graft was packed into the dorsal bone defect left by the fracture site. The extensor compartment was closed loosely. The remaining soft tissues were closed in multilayered fashion. Sterile dressings were applied, as well as a well-padded sugar-tong splint. The patient was then awakened and taken to post anesthesia care unit in stable condition. Candice Rowland acted as nurse first assist for this case and was necessary for both prepping and draping the patient, as well as reduction of the fracture site and the passage of pins to capture the fracture site and the application of splint following the surgery that allowed this case to be successful. Job#: [id number] CQ
== END | disposition home or self-care (01) ==
LOC: OR 05:30
PROVIDERS: ATTEND Specialist
DX: S52.532A Colles' fracture of left radius, initial encounter for closed fracture (principal); M19.90 Unspecified osteoarthritis, unspecified site; J44.9 Chronic obstructive pulmonary disease, unspecified; K21.9 Gastro-esophageal reflux disease without esophagitis; K57.92 Diverticulitis of intestine, part unspecified, without perforation or abscess without bleeding; I10 Essential (primary) hypertension; E11.9 Type 2 diabetes mellitus without complications; F17.210 Nicotine dependence, cigarettes, uncomplicated; W19.XXXA Unspecified fall, initial encounter; Z01.810 Encounter for preprocedural cardiovascular examination; Z01.812 Encounter for preprocedural laboratory examination; Z01.818 Encounter for other preprocedural examination
CPT/HCPCS: 25607; 36415 ×2; 71046; 76000; 80048; 82948; 85025; 93005; C1713 ×2; J1100; J1170; J1885; J2001; J2250; J2405

== ENCOUNTER → 2018-01-05 | Day surgery (SDC) | payer MEDICARE ==
[2018-01-04 08:28] LABS: BASOPHILS % 0.4 % (0.0-1.0); EOSINOPHILS # (AUTO) 0.1 (0.0-0.4); EOSINOPHILS % 1.5 % (0.0-6.0); HEMATOCRIT 39.5 % (34.2-44.1); HEMOGLOBIN 13.2 g/dL (12.0-16.0); LYMPHOCYTES # (AUTO) 1.3 (1.0-3.2); LYMPHOCYTES % 14.4 % (18.0-39.1); MEAN CORPUSCULAR HEMOGLOBIN 30.1 pg (28-32); MEAN CORPUSCULAR HGB CONC 33.4 g/dL (31-35); MEAN CORPUSCULAR VOLUME 90.2 fL (81-99); MONOCYTES # (AUTO) 0.5 (0.2-0.8); MONOCYTES % 5.4 % (4.4-11.3); NEUTROPHILS # (AUTO) 7.1 (2.1-6.9); NEUTROPHILS % 78.1 % (38.7-80.0); PLATELET COUNT 236 x10e3/uL (140-360); RED BLOOD COUNT 4.38 x10e6/uL (3.6-5.1); RED CELL DISTRIBUTION WIDTH 13.4 % (11.7-14.4)
[2018-01-04 08:47] LABS: BLOOD UREA NITROGEN 6 mg/dL (7-26); BUN/CREATININE RATIO 7 (6-25); CALCIUM 9.5 mg/dL (8.4-10.2); CARBON DIOXIDE 26 mmol/L (22-29); CHLORIDE 101 mmol/L (98-107); CREATININE, SERUM 0.91 mg/dL (0.57-1.11); EST GLOMERULAR FILTRATION RATE > 60 ML/MIN (60-); GLUCOSE 136 mg/dL (74-118); SODIUM 140 mmol/L (136-145)
[~2018-01-05] MED LIST changes: -BUPIVACAINE HCL 0.5% 10ML MPF VIAL INJ ONE; +BUPIVACAINE HCL 0.5% INJ 30 ML VIAL INJ ONE; -KETOROLAC TROMETHAMINE 30 MG/ML VIAL ONE
--- OUTSIDE RECORDS SUMMARY | 2018-01-05 09:40 | XMS REPORT ---
Author Author Admin, [facility] Address [address] [place] [address] Phone Allergies, Adverse Reactions, Alerts Allergy Name [...] One tab by mouth daily LEVOTHYROXINE SODIUM 85176531724 Active Meghan Menezes MD Active CLONAZEPAM 0.5 MG ORAL TABLET 1 By Mouth Twice a Day As Needed anxiety 05/26 CLONAZEPAM 40003067043 Active Meghan Menezes MD Active METFORMIN HCL 1000 MG ORAL TABLET 1 by mouth twice a day METFORMIN HCL 18745717780 Active Meghan Menezes MD Active CYCLOBENZAPRINE HCL 10 MG ORAL TABLET 1 By Mouth three times a day as needed for muscle spasm CYCLOBENZAPRINE HCL 50237800851 Active Soni Bocanegra WAXER TENDER Active NORVASC 5 MG ORAL TABLET 1 by mouth every day AMLODIPINE BESYLATE 04151273881 Active Meghan Menezes MD Active NASONEB NEBULIZER STARTER NASAL NEBULIZERS 29446387356 Active Daren Antonio MD (res) Active TESSALON PERLES 100 MG ORAL CAPSULE 1 by mouth 3 times a day as needed for cough BENZONATATE 20637884579 Active Daren Antonio MD (res) Active ALBUTEROL SULFATE (2.5 MG/3ML) 0.083% INHALATION NEBULIZATION SOLUTION 1 via Hand held neb every 4 - 6 hours as needed ALBUTEROL SULFATE 03521618080 Active Daren Antonio MD (res) Active ATORVASTATIN CALCIUM 20 MG ORAL TABLET Take one tab take at bedtime ATORVASTATIN CALCIUM 63302169657 Active Meghan Menezes MD Active FLUOXETINE HCL 40 MG ORAL CAPSULE 1 by mouth daily FLUOXETINE HCL 48043798322 Active Meghan Menezes MD Active LEVOTHYROXINE SODIUM 100 MCG ORAL TABLET 1 by mouth daily LEVOTHYROXINE SODIUM 44889709244 Active Meghan Menezes MD Active LISINOPRIL 40 MG ORAL TABLET 1 by mouth every day LISINOPRIL 99089026729 Active Meghan Menezes MD Active PROAIR HFA 108 (90 Base) MCG/ACT INHALATION AEROSOL SOLUTION 2 puffs every 4 - 6 hours as needed ALBUTEROL SULFATE 27145661026 Active Birgit Ward MD Active SYMBICORT 160-4.5 MCG/ACT INHALATION AEROSOL 1 inhalation bid BUDESONIDE-FORMOTEROL FUMARATE 92978719267 Active Daren Antonio MD (res) Active METFORMIN HCL 500 MG ORAL TABLET 1 by mouth twice a day METFORMIN HCL 500 MG ORAL TABLET 586400 METFORMIN HCL Inactive AZITHROMYCIN 250 MG ORAL TABLET 2 tablets by mouth on day one then one tablet by mouth each day for a total of 5 days AZITHROMYCIN 250 MG ORAL TABLET 059448 AZITHROMYCIN Inactive HYDROXYZINE HCL 25 MG ORAL TABLET 1 tab By Mouth Three Times a Day as needed for anxiety HYDROXYZINE HCL 25 MG ORAL TABLET 053623 HYDROXYZINE HCL Inactive AMLODIPINE BESYLATE 10 MG ORAL TABLET 1 tab by mouth daily 12/08 AMLODIPINE BESYLATE 10 MG ORAL TABLET 814662 AMLODIPINE BESYLATE Inactive METFORMIN HCL 500 MG ORAL TABLET 1 by mouth twice a day METFORMIN HCL 35213361905 No Longer Active Soni Bocanegra WAXER TENDER Active AZITHROMYCIN 250 MG ORAL TABLET 2 tablets by mouth on day one then one tablet by mouth each day for a total of 5 days AZITHROMYCIN 12973099725 No Longer Active Blade Lorenz MD Active HYDROXYZINE HCL 25 MG ORAL TABLET 1 tab By Mouth Three Times a Day as needed for anxiety HYDROXYZINE HCL 21192766414 No Longer Active Meghan Menezes MD Active AMLODIPINE BESYLATE 10 MG ORAL TABLET 1 tab by mouth daily 12/08 AMLODIPINE BESYLATE 39739304491 No Longer Active Blade Lorenz MD Active [...] - Hematology platelet count 251 X10E3/UL 10*3/mm3 261-592 5813/12/26 red blood cell distribution width 13.5 % [...] 23 mmol/L 18-29 sodium, serum 136 mmol/L 498-453 5649/12/26 hemoglobin A1C, blood, as % of total [...] Encounters Date Encounter Provider Code Facility 13:27:53 BROADCAST MAINTENANCE ENGINEER Est Patient Detailed - 24658 Meghan Menezes MD CPT- 35455 [facility] 21:34:47 CDT Est Patient Exp Problem - 82098 Meghan Menezes MD CPT- 56220 [facility] 08:45:03 CDT Est Patient Detailed - 91735 Meghan Menezes MD CPT- 09060 [facility] 15:26:28 CDT Est Patient Detailed - 66963 Daren Antonio MD (res) CPT-45641 [facility] 11:18:46 BROADCAST MAINTENANCE ENGINEER Est Patient Exp Problem - 58023 Blade Lorenz MD CPT-32187 [facility] 16:03:38 BROADCAST MAINTENANCE ENGINEER Est Patient Exp Problem - 61060 Blade Lorenz MD CPT-34636 [facility] 11:41:53 BROADCAST MAINTENANCE ENGINEER Est Patient Exp Problem - 67312 Kavon Haney MD CPT-93722 [facility] 16:35:56 BROADCAST MAINTENANCE ENGINEER Est Patient Exp Problem - 33854 Faustino Westbrook MD CPT -47469 [facility] 11:17:24 BROADCAST MAINTENANCE ENGINEER New Patient Detailed - 35896 Birgit Ward MD CPT-37739 [facility] Procedures Code Procedure Name Date Entry Date Standard Description CPT-59879 INFLUENZA VACCINE QUADRIVALENT 3 YRS PLUS IM 21:34:52 CDT CPT-53029 Diagnostic evaluation (no medical) - 29446 15:43:40 BROADCAST MAINTENANCE ENGINEER
--- OUTSIDE RECORDS SUMMARY | 2018-01-05 09:40 | XMS REPORT | Clinical Summary ---
Author Author [facility] Organization [facility] Address Unknown Phone Unavailable Care Team Providers Care Freight Rate Specialist Name Role Phone Sergey Rosario MD PCP [...] mg tablet TWICE DAILY WITH MEALS 17 metFORMIN (GLUCOPHAGE) Take 1 tablet (500 mg 60 tablet 1 08/03/20 Discontin 500 MG tablet total) by mouth 2 (two) 16 17 ued times a day with meals. levothyroxine (SYNTHROID, Take 1 tablet (100 mcg 30 tablet 1 08/03/20 01/27/20 Discontin LEVOTHROID) 100 MCG total) by mouth every 16 17 ued tablet morning. acetaminophen-codeine Take 1-2 tablets by mouth 15 tablet 0 20 11/17/19 (TYLENOL WITH CODEINE #3) every 6 (six) hours as 18 18 300-30 mg per tablet needed for moderate pain for up to 5 days. ibuprofen (ADVIL,MOTRIN) Take 1 tablet (600 mg 30 tablet 0 11/12/19 12/13/19 600 MG tablet total) by mouth every 6 18 18 (six) hours as needed for mild pain for up to 30 days. Active Problems Not on file Encounters Date Type Specialty Care Team Description 11/12/2017 Emergency Emergency Medicine Chhaya Terry, Left wrist fracture, closed, initial encounter (Primary Dx); Fall, initial encounter 04/02/2017 Refill Family Medicine Sergey Rosario MD 03/03/2017 Refill Family Medicine Sergey Rosario MD 02/01/2017 Refill Family Medicine Sergey Rosario MD 01/24/2017 Refill Family Medicine Sergey Rosario MD 01/21/2017 Refill Family Medicine Sergey Rosario MD 01/16/2017 Refill Family Medicine Sergey Rosario MD after 01/04/2017 Family History Medical History Relation Name Comments [...] Taken Blood Pressure 130/85 11/12/2017 7:36 PM DIRECTOR OF LEARNING Pulse 98 11/12/2017 7:36 PM DIRECTOR OF LEARNING Temperature 36.9 C (98.4 F) 11/12/2017 4:46 PM DIRECTOR OF LEARNING Respiratory Rate 20 11/12/2017 7:36 PM DIRECTOR OF LEARNING Oxygen Saturation 98% 11/12/2017 7:36 PM DIRECTOR OF LEARNING Inhaled Oxygen - - Concentration Weight - - Height - - Body Mass Index - - Plan of Treatment Health Maintenance Due Date Last Done Comments PAP SMEAR 1973 COLONOSCOPY 2002 ZOSTER VACCINE 2012 MAMMOGRAM 04/13/2013 04/13/2011 PNEUMOCOCCAL 2017 POLYSACCHARIDE VACCINE AGE 65 AND OVER PNEUMOCOCCAL-13 2017 INFLUENZA VACCINE 05/04/2018 Procedures Procedure Name Priority Date/Time Associated Diagnosis Comments [place] CLOSED RX DIST Routine 11/12/2017 Results for this RAD/ULNA FX,MANIPUL 10:05 PM DIRECTOR OF LEARNING procedure are in the results section. [place] APPLY LONG ARM SPLINT Routine 11/12/2017 Results for this 10:05 PM DIRECTOR OF LEARNING procedure are in the results section. after 01/04/2017 Results * ORTHOPEDIC INJURY TREATMENT (11/12/2017 10:05 [...] time period is included. Specimen Performing Laboratory [facility] [address] [place] [address] Narrative Procedure:XR WRIST 3VW LEFT REFERRING PHYSICIAN: CHHAYA TERRY HISTORY:DISLOCATIONWRIST, post reduction of wrist IMPRESSION: Since the study earlier on the same day, there has been placement of an overlying cast causing obscuration of the underlying osseous details. Mild to moderate reduction of the Colles' fractures is seen. [id number] Procedure Note Interface, Radiology Results Incoming - 11/12/2017 6:57 PM DIRECTOR OF LEARNING Procedure:XR WRIST 3 VW LEFT REFERRING PHYSICIAN: CHHAYA TERRY HISTORY: DISLOCATION WRIST, post reduction of wrist IMPRESSION: Since the study earlier on the same day, there has been placement of an overlying cast causing obscuration of the underlying osseous details. Mild to moderate reduction of the Colles' fractures is seen. [id number] * XR Forearm 2 Vw Left (11/12/2017 5:39 PM) Specimen Performing Laboratory [facility] [address] [place] [address] Narrative XR FOREARM 2 VW LEFT CLINICAL [...] participate in the care of your patient. [id number] Procedure Note Interface, Radiology Results Incoming - 11/12/2017 5:47 PM DIRECTOR OF LEARNING XR FOREARM 2 VW LEFT CLINICAL INDICATION: [...] participate in the care of your patient. [id number] after 01/04/2017 Insurance Payer Benefit Subscriber ID Type Phone Address Plan / Group AETNA MEDICARE AETNA xxxxxxxx HMO MEDICARE HMO/PPO [facility] Home:
--- NOTE | 2018-01-06 00:31 | Operative Report ---
DATE OF PROCEDURE: January 05, 2018 PREOPERATIVE DIAGNOSIS: Impending malunion, left wrist fracture. POSTOPERATIVE DIAGNOSIS: Impending malunion, left wrist fracture. OPERATIONS/PROCEDURES PERFORMED: Patient underwent: 1. A removal of left wrist hardware. 2. A takedown of an impending malunion of a displaced left distal radius fracture. 3. Allograft bone grafting of the left distal radius fracture and dorsal plate fixation as well as percutaneous pin fixation of the left distal radius fracture. CLERICAL INVESTIGATOR: None. ANESTHESIA: General endotracheal intubation anesthesia. IV FLUIDS: Per the anesthesia record. BRIEF DESCRIPTION OF THE PATIENT'S OPERATIVE PROCEDURE: Ms. Tobar was taken to the operating room and placed in the supine position on operating room table. Following induction of general anesthesia as well as endotracheal intubation, the patient's left upper extremity was examined under anesthesia. She was found to have 2 pins protruding from the previously closed reduction and percutaneous pinning of a left distal radius fracture. Fluoroscopic evaluation of the wrist joint, however, demonstrated a loss of fracture alignment with one of her pins being bent and the second pin having lost cortical contact. The patient had admitted to being noncompliant with her postoperative instructions concerning activity levels following her initial surgery. Postoperative evaluations had demonstrated loss of her reduction, and surgical consultation with the patient and her family resulted in the patient consenting to a repeat surgery to improve the alignment of her wrist. The patient also agreed preoperatively to remain compliant with postoperative instructions concerning activity levels following her surgery. Prior to beginning the case, patient's percutaneous pins were removed. The pin sites were cleaned and showed no evidence of infection. The patient's upper extremity was then prepped and draped in standard surgical fashion. The patient's previous dorsal incision was used to approach her fracture site. The incision was opened and blunt dissection was used to deepen the incision to the level of the fourth dorsal wrist compartment. The fourth dorsal wrist compartment was opened and the common extensor tendons were translated from the compartment in an ulnar direction. The third compartment was also opened and the extensor for the thumb was translated in a radial direction. There was a significant deformity of the dorsum of the wrist, and copious callous formation was taken down. The dissection was carried radially to the region of the radial styloid and callous formation was also taken down in this region. This allowed for mobilization of patient's fracture site and a Greenback was used to mobilize the fracture both distally and in a palmar fashion to reestablish the length and inclination of the radius. A single 0.062 K-wire was then inserted from the radial styloid proximally transfixing the fracture in its reduced position. A curette was then used to debride the fracture fragments to healthy cancellous bone. Callus was also removed from the shaft of the radius to allow for adequate blood inflow. This fracture site was then copiously irrigated and the defect in the dorsum of the wrist was bone grafted with combinations of cancellous chips and Woodlyn putty. A plate was then attached to the dorsum of the wrist and adjusted appropriately. The plate was then affixed to the wrist with combinations of both cortical and locking screws. This resulted in realignment of the distal radius with adequate palmar inclination and only mild loss of overall length and radial inclination of the radius. The patient's wounds were copiously irrigated. The fourth dorsal wrist compartment was closed, and the wrist and hand were placed in range of motion to assure that the extensor tendons were moving freely. The remaining soft tissues were closed in a multilayer fashion. Sterile dressings were applied, and the patient was placed in a well-padded sugar tong splint. She was then awakened and taken to the postanesthesia care unit in stable condition. Job#: [id number]
== END | disposition home or self-care (01) ==
LOC: OR 09:38
PROVIDERS: ATTEND Specialist
DX: S52.572P Other intraarticular fracture of lower end of left radius, subsequent encounter for closed fracture with malunion (principal); S50.02XA Contusion of left elbow, initial encounter; M19.90 Unspecified osteoarthritis, unspecified site; G89.29 Other chronic pain; J44.9 Chronic obstructive pulmonary disease, unspecified; K21.9 Gastro-esophageal reflux disease without esophagitis; K57.92 Diverticulitis of intestine, part unspecified, without perforation or abscess without bleeding; K58.9 Irritable bowel syndrome, unspecified; E11.22 Type 2 diabetes mellitus with diabetic chronic kidney disease; I13.10 Hypertensive heart and chronic kidney disease without heart failure, with stage 1 through stage 4 chronic kidney disease, or unspecified chronic kidney disease; N18.9 Chronic kidney disease, unspecified; F41.9 Anxiety disorder, unspecified; F17.210 Nicotine dependence, cigarettes, uncomplicated; X58.XXXA Exposure to other specified factors, initial encounter; Z01.812 Encounter for preprocedural laboratory examination
CPT/HCPCS: 25400; 36415 ×2; 76001; 80048; 82948; 85025; C1713 ×5; J1100; J1170; J2001; J2250; J2405

== ENCOUNTER 2018-03-17 09:10 | Outpatient (RCR) | payer MEDICARE ==
[~2018-03-17 09:10] MED LIST changes: -BACITRACIN 50,000 UNIT VIAL ONE; -BUPIVACAINE HCL 0.5% INJ 30 ML VIAL INJ ONE; -CEFAZOLIN SOD 2 GM/D5W 50ML 50 ML IV ONE; -DEXAMETHASONE SOD PHOS INJ 4 MG/ML VIAL ONE; -FENTANYL CITRATE/PF 100MCG/2 ML INJ ONE; -HYDROMORPHONE 1MG/1ML INJ ONE; -LIDOCAINE HCL 2% LOCAL INJ 5 ML SDV VIAL INJ ONE; -MIDAZOLAM HCL 2 MG/2 ML VIAL ONE; -ONDANSETRON HCL INJ 2 MG/ML VIAL ONE; -PROPOFOL IV EMULSION 10 MG/ML 20 ML VIAL ONE; -SEVOFLURANE INHAL SOLN 250 ML PEN BTL ONE
== END 2018-04-02 ==
LOC: OT 09:10
PROVIDERS: ATTEND Specialist
DX: S52.502D Unspecified fracture of the lower end of left radius, subsequent encounter for closed fracture with routine healing (principal); M25.532 Pain in left wrist; M25.632 Stiffness of left wrist, not elsewhere classified; R53.1 Weakness
CPT/HCPCS: 97022; 97110; 97165; G8987; G8988

== ENCOUNTER → 2019-01-13 | Outpatient (CLI) | payer MEDICARE ==
[~2019-01-13] MED LIST changes: +GADOBENATE DIMEGLUMINE 1 ML IV ONE; +LORAZEPAM INJ 2 MG/ML VIAL ONE
--- NOTE | 2019-01-13 16:06 | Diagnostic Imaging Report ---
Examination: MRI BRAIN WITHOUT AND WITH CONTRAST History: Headache. Migraine. Comparison studies: None Technique: Pre-contrast: Sagittal T2; axial T1, GRE or SWI, DWI, T2 FLAIR Post-contrast: axial, sagittal and coronal T1. Intravenous contrast: 13 mL Multihance. Findings: Significant motion artifact. Scalp: No abnormal signal. No masses. Bone marrow: Normal in signal intensity. Brain volume: Adequate for age. No volume loss. Ventricles: Normal in size and configuration. No hydrocephalus. Parenchyma: There are a few scattered punctate and patchy areas of T2/FLAIR hyperintensity in the periventricular and subcortical white matter, nonspecific. No masses, hemorrhage, acute or chronic vascular insults. Extra-axial spaces: No lesion, fluid collection or hematoma. Enhancement: No definite area of abnormal enhancement. Suprasellar and sellar region: No abnormalities. Craniocervical junction: No abnormalities. The foramen magnum is patent. No Chiari malformations. Vessels: Normal flow-voids in the arteries and sinuses. Additional findings:None. IMPRESSION: 1. No acute intracranial abnormalities. 2. Mild chronic microvascular ischemic change. Signed by: Dr. Kaylee Sandhu M.D. on 01/13/2019 4:03 PM
--- NOTE | 2019-01-14 23:42 | Diagnostic Imaging Report ---
EXAM: MR Abdomen WITHOUT and WITH Contrast INDICATION: Possible liver mass. ABN FINDINGS OF LIVER COMPARISON: MRI Abdomen 10/08/2017. TECHNIQUE: Multiplanar and multisequence imaging was performed of the abdomen without and with contrast. T1-weighted, T2-weighted images, T1-weighted in and swe-ta-nequu, and Diffusion weighted images. Dynamic, post gadolinium T1-weighted spoiled gradient echo scans. IV Contrast: 13 mL of MultiHance gadolinium Oral Contrast: None Medications: None COMPLICATIONS: None FINDINGS: LOWER THORAX: Unremarkable. HEPATOBILIARY: No focal hepatic lesions. No biliary ductal dilation. GALLBLADDER: There are stones in the gallbladder. No wall thickening. SPLEEN: No splenomegaly. PANCREAS: No focal masses or ductal dilatation. ADRENALS: No adrenal nodules KIDNEYS/URETERS: Kidneys enhance symmetrically. No hydronephrosis. 1.4 cm simple cyst in the inferior pole of the left kidney. No stones. GI TRACT: No abnormal distention, wall thickening, or evidence of bowel obstruction. LYMPH NODES: No lymphadenopathy. VESSELS: Unremarkable. PERITONEUM / RETROPERITONEUM: No free air or fluid. BONES: Unremarkable. SOFT TISSUES: Unremarkable. IMPRESSION: 1. No abnormal lesions identified in the liver. 2. Cholelithiasis. 3. Simple left renal cyst. Signed by: Dr. Jace Longo M.D. on 01/14/2019 11:39 PM
== END ==
LOC: MRI 07:48
PROVIDERS: ATTEND Psychiatry & Neurology Neurology
DX: G43.119 Migraine with aura, intractable, without status migrainosus (principal); R93.2 Abnormal findings on diagnostic imaging of liver and biliary tract
CPT/HCPCS: 70553; 74183; J2060

== ENCOUNTER → 2019-02-28 | Day surgery (SDC) | payer MEDICARE ==
[~2019-02-28] MED LIST changes: +FENTANYL CITRATE/PF 100MCG/2 ML INJ ONE; -GADOBENATE DIMEGLUMINE 1 ML IV ONE; +LEXAPRO10 MG PO; +LIDOCAINE HCL 2% LOCAL INJ 5 ML SDV VIAL INJ ONE; -LORAZEPAM INJ 2 MG/ML VIAL ONE; +MIDAZOLAM HCL 2 MG/2 ML VIAL ONE; +PROPOFOL IV EMULSION 10 MG/ML 20 ML VIAL ONE
--- OUTSIDE RECORDS SUMMARY | 2019-02-28 11:19 | XMS REPORT | Clinical Summary ---
Author Author [facility] Organization [facility] Address Unknown Phone Unavailable Care Team Providers Care Laborer Adjustable Steel Joist Name Role Phone Sergey Rosario MD PCP Unavailable Allergies Comments Active Allergy Reactions Severity Noted Date Codeine Itching 08/03/2016 Medications End Date Status Medication Sig Dispensed Refills Start Date Active lisinopril Take 1 tablet 30 tablet 1 (PRINIVIL,ZESTRIL) 40 MG (40 mg total) 6 tablet by mouth daily. Active FLUoxetine (PROzac) 40 MG Take 1 30 capsule 1 capsule capsule (40 6 mg total) by mouth daily. Active atorvastatin (LIPITOR) 20 Take 1 tablet 30 tablet 1 MG tablet (20 mg total) 6 by mouth daily. Active amLODIPine (NORVASC) 5 mg TAKE ONE 30 tablet 0 tablet TABLET BY 7 MOUTH ONCE DAILY Active levothyroxine (SYNTHROID, Take 1 tablet 30 tablet 1 LEVOXYL) 100 mcg tablet (100 mcg 7 total) by mouth every morning. Active metFORMIN (GLUCOPHAGE) TAKE ONE 60 tablet 0 500 mg tablet TABLET BY 7 MOUTH TWICE DAILY WITH MEALS Active Problems Not on file Encounters Care Team Description Date Type Specialty Devyn Hensley DO Screening breast examination 11/14/2018 Hospital Radiology Encounter Devyn Hensley DO Asymptomatic postmenopausal state 11/14/2018 Hospital Radiology Encounter Devyn Hensley DO Asymptomatic postmenopausal state (Primary Dx); Screening breast examination 11/09/2018 Transcribe Access Orders after 02/27/2018 Family History Medical History Relation Name Comments Diabetes Father Heart disease Father Hepatitis Father Asthma Mother Heart disease Mother Relation Name Status Comments Father Mother Alive Social History Date Tobacco Use Types Packs/Day Years Used Current Every Day Smoker 0.25 Smokeless Tobacco: Current User Alcohol Use Drinks/Week oz/Week Comments No Sex Assigned at Date Recorded Not on file Industry Job Start Date Occupation Not on file Not on file Not on file Travel End Travel History Travel Start No recent travel history available. Last Filed Vital Signs Not on file Plan of Treatment Health Maintenance Due Date Last Done Comments COLON CANCER SCREENING 2002 SHINGLES VACCINES (#1) 2002 65+ PNEUMOCOCCAL VACCINE 2017 (1 of 2 - PCV13) PNEUMOCOCCAL 2017 POLYSACCHARIDE VACCINE AGE 65 AND OVER INFLUENZA VACCINE 05/04/2019 BREAST CANCER SCREENING 11/14/2020 11/14/2018, 04/13/2011 Procedures Comments Procedure Name Priority Date/Time Associated Diagnosis BONE DENSITY Routine 11/14/2018 Asymptomatic 8:07 AM WASHING MACHINE MECHANIC postmenopausal state MAMMO BREAST SCREEN Routine 11/14/2018 Screening breast TOMOSYNTHESIS BILATERAL 7:45 AM WASHING MACHINE MECHANIC examination after 02/27/2018 Results * Bone Density (11/14/2018 8:07 AM WASHING MACHINE MECHANIC) Specimen Narrative Performed At EXAMINATION:BONE DENSITY [facility] CLINICAL HISTORY:Z78.0 Asymptomatic menopausal state, z78.0 COMPARISON:None. IMPRESSION: The results of this study expressed as bone mineral density (BMD) were as follows: AP spine (L1-L4) BMD: 1.205 g/cm2 T-Score: 0.2 WHO Classification: Normal. Dual Femur (Total Mean): BMD: 0.83 g/cm2 T-Score: -1 WHO Classification: Osteopenia Dual femur FRAX: 10 year probability of fracture: 1.Major osteoporotic: 14.6% 2.Hip: 2.6% A copy of this scans including a report detailing these results will follow. Note: The world health organization (WHO) has classified the patient's T-score as follows: Above (-1) as normal (-1) to (-2.5) as low (osteopenia) Below (-2.5) as abnormally low (osteoporosis, increased fracture risk) [facility]-[id number] Procedure Note Hm Interface, Radiology Results Incoming - 11/14/2018 8:55 AM WASHING MACHINE MECHANIC EXAMINATION: BONE DENSITY CLINICAL HISTORY: Z78.0 Asymptomatic menopausal state, z78.0 COMPARISON: None. IMPRESSION: The results of this study expressed as bone mineral density (BMD) were as follows: AP spine (L1-L4) BMD: 1.205 g/cm2 T-Score: 0.2 WHO Classification: Normal. Dual Femur (Total Mean): BMD: 0.83 g/cm2 T-Score: -1 WHO Classification: Osteopenia Dual femur FRAX: 10 year probability of fracture: 1. Major osteoporotic: 14.6% 2. Hip: 2.6% A copy of this scans including a report detailing these results will follow. Note: The world health organization (WHO) has classified the patient's T-score as follows: Above (-1) as normal (-1) to (-2.5) as low (osteopenia) Below (-2.5) as abnormally low (osteoporosis, increased fracture risk) [facility]-[id number] Performing Organization Address [facility] Phone Number [facility] [address] [place] [address] * Mammo Breast Screen Tomosynthesis Bilateral (11/14/2018 7:45 AM WASHING MACHINE MECHANIC) Specimen Narrative Performed At PROCEDURE: MAMMO BREAST SCREEN TOMOSYNTHESIS BILATERAL [employer] Computer aided detection was utilized for the interpretation of the digital bilateral screening mammography with tomosynthesis. COMPARISON: 04/13/2011 CLINICAL HISTORY: Screening mammogram.The patient has no current breast complaints. DENSITY: The breast tissue is heterogeneously dense, which may obscure small masses. There are a few scattered benign-appearing coarse calcifications in both breasts. Vascular calcifications are present in the left breast. No new significant masses, calcifications, or other findings are seen in either breast. IMPRESSION:No mammographic evidence of malignancy. RECOMMENDATION: Comparison with physical exam and annual screening mammography. BI-RADS 2: BENIGN This facility is accredited by the [employer] for Mammography. A negative x-ray report should not delay biopsy if a dominant or clinically suspicious mass is present.Not all cancers are identified by x-ray. [id number] Performing Organization Address City/State/Zipcode Phone Number [facility] [address] [place] [address] after 02/27/2018 Insurance Type Payer Benefit Subscriber ID Effective Phone Address Plan / Dates Group HMO AETNA MEDICARE AETNA xxxxxxxx 2017- MEDICARE Present HMO/PPO [facility] Advance Directives Patient has advance care planning documents on file. For more information, giancarlo antoine contact: Harvey Posadas [address] [place] [address]
--- OUTSIDE RECORDS SUMMARY | 2019-02-28 11:19 | XMS REPORT ---
Author Author Admin, [facility] [place] Address [address] [address] Phone Allergies, Adverse Reactions, Alerts Allergy Name [...] One tab by mouth daily LEVOTHYROXINE SODIUM 45591328876 Active Britany Lyncho [facility] PRINTER MAINTAINER Active CLONAZEPAM 0.5 MG ORAL TABLET 1 By Mouth Twice a Day As Needed anxiety CLONAZEPAM 01285833425 Active Meghan Menezes MD Active METFORMIN HCL 1000 MG ORAL TABLET 1 by mouth twice a day METFORMIN HCL 70624466585 Active Meghan Menezes MD Active CYCLOBENZAPRINE HCL 10 MG ORAL TABLET 1 By Mouth three times a day as needed for muscle spasm CYCLOBENZAPRINE HCL 15376673011 Active Soni Bocanegra [facility] SILVERING DEPARTMENT SUPERVISOR Active NORVASC 5 MG ORAL TABLET 1 by mouth every day AMLODIPINE BESYLATE 82106113413 Active Meghan Menezes MD Active NASONEB NEBULIZER STARTER NASAL NEBULIZERS 82711781183 Active Daren Antonio MD (res) Active TESSALON PERLES 100 MG ORAL CAPSULE 1 by mouth 3 times a day as needed for cough BENZONATATE 63838923335 Active Daren Antonio MD (res) Active ALBUTEROL SULFATE (2.5 MG/3ML) 0.083% INHALATION NEBULIZATION SOLUTION 1 via Hand held neb every 4 - 6 hours as needed ALBUTEROL SULFATE 75310805144 Active Daren Antonio MD (res) Active ATORVASTATIN CALCIUM 20 MG ORAL TABLET Take one tab take at bedtime ATORVASTATIN CALCIUM 63918123403 Active Meghan Menezes MD Active FLUOXETINE HCL 40 MG ORAL CAPSULE 1 by mouth daily FLUOXETINE HCL 12438776752 Active Meghan Menezes MD Active LEVOTHYROXINE SODIUM 100 MCG ORAL TABLET 1 by mouth daily LEVOTHYROXINE SODIUM 75171327370 Active Meghan Menezes MD Active LISINOPRIL 40 MG ORAL TABLET 1 by mouth every day LISINOPRIL 93388964524 Active Meghan Menezes MD Active PROAIR HFA 108 (90 Base) MCG/ACT INHALATION AEROSOL SOLUTION 2 puffs every 4 - 6 hours as needed ALBUTEROL SULFATE 40211720173 Active Birgit Ward MD Active SYMBICORT 160-4.5 MCG/ACT INHALATION AEROSOL 1 inhalation bid BUDESONIDE- FORMOTEROL FUMARATE 71753110910 Active Daren Antonio MD (res) Active METFORMIN HCL 500 MG ORAL TABLET 1 by mouth twice a day METFORMIN HCL 500 MG ORAL TABLET 417038 METFORMIN HCL Inactive AZITHROMYCIN 250 MG ORAL TABLET 2 tablets by mouth on day one then one tablet by mouth each day for a total of 5 days AZITHROMYCIN 250 MG ORAL TABLET 908210 AZITHROMYCIN Inactive HYDROXYZINE HCL 25 MG ORAL TABLET 1 tab By Mouth Three Times a Day as needed for anxiety HYDROXYZINE HCL 25 MG ORAL TABLET 022388 HYDROXYZINE HCL Inactive AMLODIPINE BESYLATE 10 MG ORAL TABLET 1 tab by mouth daily AMLODIPINE BESYLATE 10 MG ORAL TABLET 107585 AMLODIPINE BESYLATE Inactive METFORMIN HCL 500 MG ORAL TABLET 1 by mouth twice a day METFORMIN HCL 05253245067 No Longer Active Soni Bocanegra [facility] Active AZITHROMYCIN 250 MG ORAL TABLET 2 tablets by mouth on day one then one tablet by mouth each day for a total of 5 days AZITHROMYCIN 33949911538 No Longer Active Blade Lorenz MD Active HYDROXYZINE HCL 25 MG ORAL TABLET 1 tab By Mouth Three Times a Day as needed for anxiety HYDROXYZINE HCL 15727653766 No Longer Active Meghan Menezes MD Active AMLODIPINE BESYLATE 10 MG ORAL TABLET 1 tab by mouth daily AMLODIPINE BESYLATE 09544304289 No Longer Active Blade Lorenz MD Active Immunizations Vaccine Administration Date Value Standard Description influenza immunization (Flu Vax) has been administered given influenza virus vaccine, unspecified formulation Diagnostic Results Date Name Value Unit Range Description Lab Report: TSH+Free T4, CBC With Differential/Platelet, Comp. Metabolic ... - Chemistry thyroid stimulating hormone, serum 0.276 u[iU]/mL 0.450-4.500 Lab Report: Basic Metabolic Panel (8), Lipid Panel, Microalb/Creat Ratio ... - Chemistry very low density lipoproteins 27 mg/dL 5-40 Lab Report: TSH+Free T4, CBC With Differential/Platelet, Comp. Metabolic ... - Chemistry chloride, serum 95 mmol/L 96-106 urea nitrogen, blood 10 mg/dL 8-27 Lab Report: TSH+Free T4, CBC With Differential/Platelet, Comp. Metabolic ... - Hematology mean corpuscular hemoglobin concentration, RBC 33.8 G/DL % 31.5-35.7 erythrocyte (RBC) count 4.00 X10E6/UL 10*6/mm3 3.77-5.28 Lab Report: Comp. Metabolic Panel (14), Hemoglobin [...] Differential/Platelet, Comp. Metabolic ... - Chemistry urea nitrogen/creatinine ratio, serum 13 12-28 Lab Report: TSH+Free T4, CBC With Differential/Platelet, Comp. Metabolic ... - Hematology mean corpuscular volume, RBC 91 fL 79-97 Lab Report: Basic Metabolic Panel (8), Lipid Panel, Microalb/Creat Ratio ... - Chemistry HDL cholesterol, serum 59 mg/dL >39 Lab Report: TSH+Free T4, CBC With Differential/Platelet, Comp. Metabolic ... - Hematology monocytes as percent of blood leukocytes 6 % Not Estab. Lab Report: TSH+Free T4, CBC With Differential/Platelet, Comp. Metabolic ... - Chemistry albumin/globulin ratio, serum 2.1 1.2-2.2 creatinine, serum 0.79 mg/dL 0.57-1.00 Lab Report: Basic Metabolic Panel (8), Lipid Panel, Microalb/Creat Ratio ... - Chemistry cholesterol, serum 154 mg/dL 493-561 2715/01/24 creatinine, random, urine 188.3 mg/dL Not Estab. Lab Report: TSH+Free T4, CBC With Differential/Platelet, Comp. Metabolic ... - Chemistry bilirubin, serum, total 0.4 mg/dL 0.0-1.2 Lab Report: TSH+Free T4, CBC With Differential/Platelet, Comp. Metabolic ... - Hematology Eosinophil Absolute Count 0.1 X10E3/UL 10*3/uL 0.0-0.4 Lab Report: TSH+Free T4, CBC With Differential/Platelet, Comp. Metabolic ... - Chemistry aspartate aminotransferase (SGOT), serum 15 U/L 0-40 Lab Report: TSH+Free T4, CBC With Differential/Platelet, Comp. Metabolic ... - Hematology red blood cell distribution width 13.5 % 12.3-15.4 leukocyte count, blood 10.3 X10E3/UL 10*3/mm3 3.4-10.8 Lab Report: TSH+Free T4, CBC With Differential/Platelet, Comp. Metabolic ... - Chemistry potassium, serum 4.3 mmol/L 3.5-5.2 immature granulocytes, percentage of total cells, blood 0 % Not Estab. albumin, serum 4.5 g/dL 3.6-4.8 Lab Report: TSH+Free T4, CBC With Differential/Platelet, Comp. Metabolic ... - Hematology lymphocyte count, blood, automated 1.2 X10E3/UL 10*3/mm3 0.7-3.1 hematocrit, blood 36.4 % 34.0-46.6 Lab Report: TSH+Free T4, CBC With Differential/Platelet, Comp. Metabolic ... - Chemistry sodium, serum 136 mmol/L 134-144 Lab Report: TSH+Free T4, CBC With Differential/Platelet, Comp. Metabolic ... - Hematology neutrophils as percent of blood leukocytes 81 % Not Estab. basophils as percent of blood leukocytes 0 % Not Estab. Lab Report: TSH+Free T4, CBC With Differential/Platelet, Comp. Metabolic ... - Chemistry carbon dioxide, venous blood 23 mmol/L 18-29 Lab Report: Basic Metabolic Panel (8), Lipid Panel, Microalb/Creat Ratio ... - Chemistry triglyceride, serum, fasting 133 mg/dL 0-149 Lab Report: TSH+Free T4, CBC With Differential/Platelet, Comp. Metabolic ... - Chemistry calcium, serum 9.3 mg/dL 8.7-10.3 Lab Report: Basic Metabolic Panel (8), Lipid Panel, Microalb/Creat Ratio ... - Chemistry microalbumin/creatinine ratio, urine 7.6 MG/G CREAT ug/mg 0.0-30.0 Lab Report: TSH+Free T4, CBC With Differential/Platelet, Comp. Metabolic ... - Chemistry alanine aminotransferase (SGPT), serum 14 U/L 0-32 Lab Report: TSH+Free T4, CBC With Differential/Platelet, Comp. Metabolic ... - Hematology mean corpuscular hemoglobin, RBC 30.8 pg 26.6-33.0 Lab Report: TSH+Free T4, CBC With Differential/Platelet, Comp. Metabolic ... - Chemistry protein, total, serum 6.6 g/dL 6.0-8.5 alkaline phosphatase, serum 71 U/L 39-117 Lab Report: TSH+Free T4, CBC With Differential/Platelet, Comp. Metabolic ... - Hematology hemoglobin, blood 12.3 g/dL 11.1-15.9 lymphocytes as percent of blood leukocytes 12 % Not Estab. Lab Report: TSH+Free T4, CBC With Differential/Platelet, Comp. Metabolic ... - Chemistry hemoglobin A1C, blood, as % of total hemoglobin 6.1 % 4.8-5.6 Lab Report: TSH+Free T4, CBC With Differential/Platelet, Comp. Metabolic ... - Genetics/fertility eGFR if 91 mL/min/1.73m2 >59 Lab Report: TSH+Free T4, CBC With Differential/Platelet, Comp. Metabolic ... - Chemistry thyroxine, serum, free 1.65 ng/dL 0.82-1.77 Lab Report: TSH+Free T4, CBC With Differential/Platelet, Comp. Metabolic ... - Hematology basophil count, absolute 0.0 x10E3/uL 0.0-0.2 Lab Report: TSH+Free T4, CBC With Differential/Platelet, Comp. Metabolic ... - Chemistry globulin, serum 2.1 1.5-4.5 Estimated Glomerular Filtration Rate (calc) 79 mL/min/1.73m2 >59 Lab Report: Basic Metabolic Panel (8), Lipid Panel, Microalb/Creat Ratio ... - Urinalysis microalbumin/total urine volume 14.4 mg/L Not Estab. Lab Report: TSH+Free T4, CBC With Differential/Platelet, Comp. Metabolic ... - Hematology eosinophils as percent of blood leukocytes 1 % Not Estab. Lab Report: TSH+Free T4, CBC With Differential/Platelet, Comp. Metabolic ... - Chemistry blood glucose, random 167 mg/dL 65-99 Lab Report: TSH+Free T4, CBC With Differential/Platelet, Comp. Metabolic ... - Hematology monocyte count, blood, automated 0.7 X10E3/UL 10*3/uL 0.1-0.9 platelet count 251 X10E3/UL 10*3/mm3 150-379 Encounters Date Encounter Provider Code Facility 13:27:53 MATERIALS INSPECTOR Est Patient Detailed - 02722 Meghan Menezes MD CPT-[id number] [facility] 21:34:47 CDT Est Patient Exp Problem - 21460 Meghan Menezes MD CPT-04560 [facility] 08:45:03 CDT Est Patient Detailed - 91102 Meghan Menezes MD CPT-51633 [facility] 15:26:28 CDT Est Patient Detailed - 95521 Daren Antonio MD (res) CPT-72568 [facility] 11:18:46 MATERIALS INSPECTOR Est Patient Exp Problem - 99641 Blade Lorenz MD CPT-33223 [facility] 16:03:38 MATERIALS INSPECTOR Est Patient Exp Problem - 84755 Blade Lorenz MD CPT-34367 [facility] 11:41:53 MATERIALS INSPECTOR Est Patient Exp Problem - 44980 Kavon Haney MD CPT-90732 [facility] 16:35:56 MATERIALS INSPECTOR Est Patient Exp Problem - 88742 Faustino Westbrook MD CPT-26453 [facility] 11:17:24 MATERIALS INSPECTOR New Patient Detailed - 49844 Birgit Ward MD CPT-45875 [facility] Procedures Code Procedure Name Date Entry Date Standard Description CPT-27534 INFLUENZA VACCINE QUADRIVALENT 3 YRS PLUS IM 21:34:52 CDT CPT-34200 Diagnostic evaluation (no medical) - 27452 15:43:40 MATERIALS INSPECTOR
[2019-02-28 11:54] LABS: BASOPHILS % 0.3 % (0.0-1.0); EOSINOPHILS # (AUTO) 0.3 (0.0-0.4); EOSINOPHILS % 2.1 % (0.0-6.0); HEMATOCRIT 42.3 % (34.2-44.1); HEMOGLOBIN 14.4 g/dL (12.0-16.0); LYMPHOCYTES # (AUTO) 1.9 (1.0-3.2); LYMPHOCYTES % 16.1 % (18.0-39.1); MEAN CORPUSCULAR HEMOGLOBIN 30.5 pg (28-32); MEAN CORPUSCULAR VOLUME 89.6 fL (81-99); MONOCYTES # (AUTO) 0.6 (0.2-0.8); MONOCYTES % 5.5 % (4.4-11.3); NEUTROPHILS # (AUTO) 8.9 (2.1-6.9); NEUTROPHILS % 75.6 % (38.7-80.0); PLATELET COUNT 304 x10e3/uL (140-360); RED BLOOD COUNT 4.72 x10e6/uL (3.6-5.1); RED CELL DISTRIBUTION WIDTH 13.8 % (11.7-14.4)
[2019-02-28 13:10] VITALS: BP 149/93
== END | disposition home or self-care (01) ==
LOC: OR 11:16
PROVIDERS: ATTEND Internal Medicine Gastroenterology
DX: Z12.11 Encounter for screening for malignant neoplasm of colon (principal); D12.3 Benign neoplasm of transverse colon; D12.4 Benign neoplasm of descending colon; K29.70 Gastritis, unspecified, without bleeding; B37.81 Candidal esophagitis; K31.89 Other diseases of stomach and duodenum; K44.9 Diaphragmatic hernia without obstruction or gangrene; K57.30 Diverticulosis of large intestine without perforation or abscess without bleeding; K64.8 Other hemorrhoids; J44.9 Chronic obstructive pulmonary disease, unspecified; I10 Essential (primary) hypertension; E11.9 Type 2 diabetes mellitus without complications; B19.20 Unspecified viral hepatitis C without hepatic coma; E78.5 Hyperlipidemia, unspecified; E03.9 Hypothyroidism, unspecified; R93.2 Abnormal findings on diagnostic imaging of liver and biliary tract; K80.20 Calculus of gallbladder without cholecystitis without obstruction; N28.1 Cyst of kidney, acquired; F41.9 Anxiety disorder, unspecified; F17.210 Nicotine dependence, cigarettes, uncomplicated; Z88.6 Allergy status to analgesic agent; Z79.84 Long term (current) use of oral hypoglycemic drugs; Z83.79 Family history of other diseases of the digestive system
CPT/HCPCS: 36415; 43239; 45385; 82948; 85025; 93005; J2001; J2250; J2704; 43235; 45378; 45384

== ENCOUNTER → 2019-03-23 | Outpatient (CLI) | payer MEDICARE ==
[~2019-03-23] MED LIST changes: -FENTANYL CITRATE/PF 100MCG/2 ML INJ ONE; -LIDOCAINE HCL 2% LOCAL INJ 5 ML SDV VIAL INJ ONE; -MIDAZOLAM HCL 2 MG/2 ML VIAL ONE; -PROPOFOL IV EMULSION 10 MG/ML 20 ML VIAL ONE
--- NOTE | 2019-03-23 16:34 | Diagnostic Imaging Report ---
Hepatobiliary Scan with Gallbladder Ejection Fraction Clinical information: RUQ abdominal pain; cholelithiasis Technique: Following intravenous administration of 6.6 millicuries of Tc-99m mebrofenin, dynamic images of the abdomen in the anterior projection were obtained through 35 minutes. Sincalide (CCK analog) 1.4 micrograms was administered intravenously over 30 minutes with additional imaging for determination of gallbladder ejection fraction. Discussion: Perfusion of the liver is normal. Extraction of tracer by the liver parenchyma is normal. Tracer appears promptly within the biliary tract. The gallbladder begins to fill by 25 minutes post injection of tracer and fills adequately. Tracer is seen in the small bowel by 18 minutes. The gallbladder ejection fraction with sincalide is 14% (normal greater than 40%). Impression: 1. Filling of the gallbladder excludes acute cystic duct obstruction/acute cholecystitis. 2. The decreased gallbladder ejection fraction of 14% supports the clinical diagnosis of chronic cholecystitis/gallbladder dyskinesia. Signed by: Dr. Yuki Germain M.D. on 03/23/2019 4:31 PM
== END ==
LOC: NM 07:57
PROVIDERS: ATTEND Internal Medicine Gastroenterology
DX: K80.20 Calculus of gallbladder without cholecystitis without obstruction (principal)
CPT/HCPCS: 78227; A9537